=== PATIENT | male | born 2000 | race Caucasian/White ===

== ENCOUNTER 2019-01-18 20:57 | Emergency (ER) | payer OTHER ==
[2019-01-18 21:03] VITALS: BP 144/79
--- NOTE | 2019-01-18 21:20 | EDPHY ---
General Time Seen by Provider: 01/18/19 21:05 Narrative: CLINICAL IMPRESSION: Acute left Calcaneal fracture ASSESSMENT/PLAN: 18-year-old male presents to the emergency department with acute left heel pain after doing a back flip off a trampoline and landing on a concrete barrier on the left heel. He is not ambulatory. No open wounds, deformity, ankle, proximal lower leg or knee pain. Distal neurovascular exam intact. X-rays and CT scans show a minimally displaced calcaneal fracture that does not extend into the talus joint. Patient was placed in a heavily padded 3 way lower leg splint and provided crutches. Referral to Orthopedics provided and encouraged follow-up early next week. Analgesics prescribed. Rice treatment reviewed. Warning signs return to ED sooner discussed in discharge papers and in-person. DIFFERENTIAL DX: Differential includes but not limited to acute fracture, strain/sprain, joint dislocation, soft tissue contusion ED PROCEDURES: Procedure: Splint placement. A sugar-tong and posterior short-leg splint was applied to left leg by bench repair technician , supervised by myself. After application of the splint I returned and re- examined the patient. The splint was adequately immobilizing the joint and distal to the splint the patient's circulation and sensation was intact. ED COURSE: 9:10 p.m.: Patient seen and assessed by myself. Plan for x-rays. 9:35 p.m.: X-ray results reviewed with patient and family. CT ordered. Patient declining pain medication at this point. 10:12 p.m.: CT results reviewed. Minimal displacement of 2 mm of calcaneus fracture that does not extend into the talus joint. Intact Achilles tendon site. Patient placed in a sugar-tong and posterior short-leg splint and provided crutches. CHIEF COMPLAINT: Left heel pain HPI: 18-year-old male presents to the emergency department with acute left heel pain. Patient reports he was jumping on a trampoline barefoot when he did a back flip and landed on a concrete barrier around the trampoline. He took the majority of the impact on both heels but reports only left heel pain. No prior left foot ankle or lower leg surgery. No lower leg or knee pain today. No open wounds. No reports of numbness or tingling. He is unable to walk due to pain. PAST MEDICAL HISTORY: No reported past medical or surgical history REVIEW OF SYSTEMS: All other systems negative Constitutional: No fever, no chills Musculoskeletal: No deformity, + joint pain Skin: No rashes, color change or open wounds. Neurological: No sensory loss or weakness. PHYSICAL EXAM: General Appearance: [Alert, oriented, appropriate for age, cooperative, appears mildly uncomfortable, declining pain meds vital signs stable Neurological: Alert and oriented x 3, normal sensation of extremities Skin: Warm, dry, no rashes, no nodules on palpation. Musculoskeletal: All reproducible pain along the left calcaneus. No medial or lateral malleolus pain or swelling. No obvious deformity. No proximal 5th metacarpal pain. No proximal leg or knee pain. Full range of motion of the knee. Distal neurovascular exam intact. MEDICAL DECISION MAKING: Patient was seen independently. Secondary supervising physician at time of evaluation was Dr. Estrella. Diagnosis: Left calcaneus fracture. New, requires workup Summary: See assessment and plan for summary of ED visit Independent visualization of images, tracing, or specimens yes. Patient Progress: Stable for discharge. - Diagnostics Imaging Results: Imaging Impressions Calcaneus X-Ray 01/18/19 21:12 Impression: Minimally displaced fracture of the posterior calcaneus. Extremity CT 01/18/19 21:31 Impression: Minimally displaced fracture posterior calcaneus. - History Smoking Status: Light smoker - Objective Vital Signs: Initial Vital Signs Temperature (C) 37.1 C 01/18/19 21:01 Heart Rate 84 01/18/19 21:01 Respiratory Rate 16 01/18/19 21:01 Blood Pressure 144/79 H 01/18/19 21:01 O2 Sat (%) 95 01/18/19 21:01 O2 Delivery Mode Room Air Allergies/Adverse Reactions: No Known Allergies Allergy (Unverified 01/18/19 21:00) Home Medications: Medication Instructions Recorded Hydrocodone/APAP 5/325 [[place] 1 - 2 tab PO Q4H PRN #10 tab 01/18/19 5/325 (*)] Medications Given: Discontinued Medications Hydrocodone Bitart/Acetaminophen ([place] 5/325mg Prepack#6) 1 btl TAKEHOME EDNOW ONE Stop: 01/18/19 23:05 Last Admin: 01/18/19 23:07 Dose: 1 btl Departure - Departure Disposition: Home, Routine, Self-Care Clinical Impression: Left calcaneal fracture Condition: Good Instructions: Hydrocodone/Acetaminophen (By mouth), Calcaneal Fracture (ED) Additional Instructions: DISCHARGE INSTRUCTIONS FROM YOUR DOCTOR Thank you for visiting our emergency department today. You were treated by a physician assistant director of admissions today and your case was reviewed with our ED Attending physician. Please keep in mind that discharge from the emergency department does not mean that there is nothing wrong - it simply means that we have not identified an emergency condition that requires further evaluation or treatment in the hospital. You should always plan to follow up with primary care for re- evaluation of your condition in the next 2-3 days. If you have been referred to a specialist, please call as soon as possible (today or tomorrow) to schedule your follow up appointment at the appropriate time. X-RAYS AND CT SCAN SHOW A LEFT-SIDED CALCANEAL FRACTURE WITH MINIMAL DISPLACEMENT OF 3 MM. NO EVIDENCE OF ACHILLES TENDON INSURE RESTREPO SITE INJURY AND FRACTURE DOES NOT EXTEND DEEPER IN TO THE ANKLE. HOWEVER THIS WILL NEED ORTHOPEDIC FOLLOW-UP. PLEASE CALL ORTHOPEDICS ON SUNDAY TO REQUEST A FOLLOW- UP APPOINTMENT. PLEASE KEEP SPLINT ON UNTIL YOU SEE ORTHO. REST AND ELEVATE THE AFFECTED EXTREMITY MUCH POSSIBLE. ICE THE AFFECTED AREAS 20 MIN ON, 20 MIN OFF FOR THE NEXT SEVERAL DAYS. PAIN MEDICATION WAS PRESCRIBED FOR BREAKTHROUGH PAIN TO USE IF NEEDED. DO NOT DRIVE OR DRINK ALCOHOL WHILE TAKING NARCOTIC PAIN MEDICATION. PLEASE BE AWARE, NARCOTICS CAN CAUSE CONSTIPATION, LETHARGY, AND INCREASE YOUR RISK OF FALLING. DO NOT TAKE TYLENOL AT THE SAME TIME VICODIN OR PERCOCET. RETURN TO THE EMERGENCY DEPARTMENT IMMEDIATELY FOR WORSENING OR SEVERE PAIN, LOSS OF SENSATION TO FOOT OR TOES, FEVERS GREATER THAN 100.4, PROXIMAL LEG PAIN OR NUMBNESS OR ANY OTHER CONCERN. People present with illnesses and injuries in different ways, and it is always possible that we have missed something. You may always return for re-evaluation if symptoms worsen or if they are not improving or if you develop new/different symptoms. Again, thank you for choosing our emergency department. We hope that you feel better. Referrals: Twyla Wick MD [Primary Care Provider] - As per Instructions Khadar Whitehead MD [Medical Doctor] - 2-3 days, call for appt. Prescriptions: Hydrocodone/APAP 5/325 [[place] 5/325 (*)] 1 - 2 tab PO Q4H PRN #10 tab PRN Reason: Pain, Moderate
[2019-01-18] MEDS ORDERED: HYDROCOD/APAP 5/325 PREPACK#6 BTL TAKEHOME ONE ×2 (23:04→23:05)
== END 2019-01-18 23:15 | disposition home or self-care (01) ==
PROC: 2W3RX1Z Immobilization of Left Lower Leg using Splint (ICD-10-PCS; principal; 2019-01-18)
DX: S92.002A Unspecified fracture of left calcaneus, initial encounter for closed fracture (principal); W09.8XXA Fall on or from other playground equipment, initial encounter; Y93.44 Activity, trampolining